=== PATIENT | male | born 1995 | race Caucasian/White ===

== ENCOUNTER 2016-10-11 16:45 | Emergency (ER) | payer BC ==
[2016-10-11] MEDS ORDERED: Acetaminophen-Codeine 300-30mg TAB PO STA (17:55)
[2016-10-11] MEDS ORDERED: IBUPROFEN 800 MG TAB PO STA (17:55)
[2016-10-11] MEDS ORDERED: ACETAMINOPHEN TAB 325 MG TAB PO STA (17:55)
--- NOTE | 2016-10-11 18:20 | ED ---
General Adult HPI - General Chief complaint: Fever Stated complaint: Fever/Poss Pneumonia Time Seen by Provider: 10/11/16 17:36 Source: patient, RN notes reviewed, old records reviewed Mode of arrival: ambulatory Limitations: no limitations - History of Present Illness Initial comments: This is a 20-year-old male ER for evaluation of fever. Patient is here cough and congestion going on for 2 days. Fevers 3 days. Patient was seen by similar Dr. diagnosed with pneumonia, patient is had increasing elevations fever. Patient has medical history is significant for occasional headaches and high blood pressure. Continue medications as prescribed. Patient denies bowel pain nausea vomiting, no chest pain, no headache at this time. Patient states appetite has been well - Related Data Home Medications Medication Instructions Recorded Confirmed Azithromycin [Zithromax Z-pack] See Taper PO DIRECTED 10/11/16 10/11/16 Ibuprofen [Motrin] 200 - 400 mg PO Q6HR PRN 10/11/16 10/11/16 LORazepam [Ativan] 1 mg PO DAILY PRN 10/11/16 10/11/16 Metoprolol Tartrate [Lopressor] 25 mg PO HS 10/11/16 10/11/16 Pantoprazole [Protonix] 40 mg PO DAILY 10/11/16 10/11/16 guaiFENesin [Mucinex] 600 mg PO Q12H PRN 10/11/16 10/11/16 Allergies Allergy/AdvReac Type Severity Reaction Status Date / Time Penicillins Allergy Unknown Verified 10/11/16 17:47 Review of Systems ROS Statement: Those systems with pertinent positive or pertinent negative responses have been documented in the HPI. ROS Other: All systems not noted in ROS Statement are negative. Past Medical History Past Medical History: GERD/Reflux, Hypertension History of Any Multi-Drug Resistant Organisms: None Reported Past Surgical History: Adenoidectomy, Tonsillectomy Past Psychological History: No Psychological Hx Reported Smoking Status: Never smoker Past Alcohol Use History: None Reported Past Drug Use History: None Reported General Exam Limitations: no limitations General appearance: alert, in no apparent distress Head exam: Present: atraumatic, normocephalic, normal inspection Eye exam: Present: normal appearance, PERRL, EOMI. Absent: scleral icterus, conjunctival injection, periorbital swelling ENT exam: Present: normal exam, mucous membranes moist Neck exam: Present: normal inspection. Absent: tenderness, meningismus, lymphadenopathy Respiratory exam: Present: normal lung sounds bilaterally. Absent: respiratory distress, wheezes, rales, rhonchi, stridor Cardiovascular Exam: Present: regular rate, normal rhythm, normal heart sounds. Absent: systolic murmur, diastolic murmur, rubs, gallop, clicks GI/Abdominal exam: Present: soft, normal bowel sounds. Absent: distended, tenderness, guarding, rebound, rigid Extremities exam: Present: normal inspection, full ROM, normal capillary refill. Absent: tenderness, pedal edema, joint swelling, calf tenderness Back exam: Present: normal inspection Neurological exam: Present: alert, oriented X3, CN II-XII intact Psychiatric exam: Present: normal affect, normal mood Skin exam: Present: warm, dry, intact, normal color. Absent: rash Course Vital Signs 10/11/16 10/11/16 17:00 17:45 Temperature 101.8 F H Pulse Rate 113 H 104 H Pulse Rate [ 108 H Apical] Respiratory 20 18 Rate Blood Pressure 120/59 O2 Sat by Pulse 99 96 Oximetry Medical Decision Making - Medical Decision Making uRthie calderon with evaluation of fever, patient does have positive influenza. Patient will be discharged home with fever control - Lab Data Lab Results 10/11/16 Range/Units 18:04 Influenza Type A RNA Not Detected (Not Detectd) Influenza Type B (PCR) Detected H (Not Detectd) - Radiology Data Radiology results: report reviewed (Chest x-ray is negative for pneumonia), image reviewed Disposition Clinical Impression: Influenza B Disposition: HOME SELF-CARE Condition: Good Instructions: Fever in Adults (ED), Influenza (ED) Referrals: Jeanmarie Jimenez DO [Primary Care Provider] - 1-2 days
--- NOTE | 2016-10-11 18:23 | XR ---
EXAMINATION TYPE: XR chest 2V DATE OF EXAM: 10/11/2016 6:13 PM COMPARISON: NONE HISTORY: Cough TECHNIQUE: Frontal and lateral views of the chest are obtained. FINDINGS: There is no focal air space opacity, pleural effusion, or pneumothorax seen. The cardiac silhouette size is within normal limits. The osseous structures are intact. IMPRESSION: No acute cardiopulmonary process.
[2016-10-11] MEDS ORDERED: DEXAMETHASONE SOD PHOSPHATE 10 MG/ML 1 ML VIAL IM STA (18:29)
[2016-10-11 18:52] VITALS: BP 98/65; PULSE 100; RESP 16; TEMP 99.3
== END 2016-10-11 19:00 | disposition home or self-care (01) ==
LOC: EC 16:45
DX: J10.1 Influenza due to other identified influenza virus with other respiratory manifestations (principal); K21.9 Gastro-esophageal reflux disease without esophagitis; I10 Essential (primary) hypertension; Z79.899 Other long term (current) drug therapy; Z88.0 Allergy status to penicillin
CPT/HCPCS: 87502; 71020; 99284; 96372; J1100

== ENCOUNTER → 2018-05-13 | Outpatient (CLI) | payer BC ==
--- NOTE | 2018-05-13 13:35 | EST ---
EXERCISE STRESS DATE OF SERVICE: 05/13/2018 AGE: 22 SEX: Male HT: 72 WT: 220 PROTOCOL: TXT STAGE: III DURATION OF EXERCISE: 8 minutes HEART RATE REST: 76 BLOOD PRESSURE REST: 121/85 MAXIMUM HEART RATE ACHIEVED: 175 MAXIMUM BLOOD PRESSURE: 158/76 85% MPHR: 168 100% MPHR: 198 METS: 9.7 INDICATIONS: Chest pain. CLINICAL INFORMATION: Baseline rhythm is sinus mechanism, rate 76, normal axis, intervals, normal electrocardiogram. Baseline blood pressure 121/85 mmHg. Patient exercised on Sergo protocol for 8 minutes reaching peak rate 175 beats per minute which is equal to 88% maximum predicted heart rate. Peak blood pressure 158/76 mmHg. Test was terminated secondary to fatigue. There was no chest pain. Electrocardiograph monitoring revealed rare PVCs. There was no evidence of diagnostic ischemic ST deviation. FINDINGS: 1. Average exercise tolerance with rare PVCs. 2. Normal electrocardiograph response to exercise with no evidence of exercise induced ischemia. MMODL / IJN: [id number] /
== END | disposition home or self-care (01) ==
LOC: RADNMMAIN 08:53
PROVIDERS: ATTEND Family Medicine
DX: I49.3 Ventricular premature depolarization (principal); R07.89 Other chest pain
CPT/HCPCS: 93017

== ENCOUNTER → 2018-05-20 | Outpatient (CLI) | payer BC ==
--- NOTE | 2018-05-21 10:48 | ECHOF ---
Referral Reason:R07.89 chest pain MEASUREMENTS -------- HEIGHT: 182.9 cm WEIGHT: 99.8 kg BP: 139/78 RVIDd: 2.8 cm (< 3.3) IVSd: 0.9 cm (0.6 - 1.1) LVIDd: 4.7 cm (3.9 - 5.3) LVPWd: 1.0 cm (0.6 - 1.1) IVSs: 1.4 cm LVIDs: 3.4 cm LVPWs: 1.6 cm LA Diam: 3.3 cm (2.7 - 3.8) LAESV Index (A-L): 21.80 ml/m Ao Diam: 3.0 cm (2.0 - 3.7) AV Cusp: 2.6 cm (1.5 - 2.6) MV EXCURSION: 23.124 mm (> 18.000) MV EF SLOPE: 143 mm/s (70 - 150) EPSS: 0.4 cm MV E Galen: 0.84 m/s MV DecT: 205 ms MV A Galen: 0.74 m/s MV E/A Ratio: 1.14 FINDINGS -------- Sinus rhythm. This was a technically good study. The left ventricular size is normal. Left ventricular wall thickness is normal. Overall left vent ricular systolic function is normal with, an EF between 60 - 65 %. The right ventricle is normal in size. Normal LA size by volume 22+/-6 ml/m2. The right atrium is normal in size. The aortic valve is trileaflet and appears structurally normal. There is trace to mild mitral regurgitation. The tricuspid valve appears structurally normal. Trace/mild (physiologic) pulmonic regurgitation. The aortic root size is normal. Normal inferior vena cava with normal inspiratory collapse consistent with estimated right atrial pre ssure of 5 mmHg. The inferior vena cava is mildly dilated. There is no pericardial effusion. CONCLUSIONS -------- 1. Sinus rhythm. 2. This was a technically good study. 3. The left ventricular size is normal. 4. Left ventricular wall thickness is normal. 5. Overall left ventricular systolic function is normal with, an EF between 60 - 65 %. 6. The right ventricle is normal in size. 7. Normal LA size by volume 22+/-6 ml/m2. 8. The right atrium is normal in size. 9. The aortic valve is trileaflet and appears structurally normal. 10. There is trace to mild mitral regurgitation. 11. The tricuspid valve appears structurally normal. 12. Trace/mild (physiologic) pulmonic regurgitation. 13. The aortic root size is normal. 14. Normal inferior vena cava with normal inspiratory collapse consistent with estimated right atrial pressure of 5 mmHg. 15. The inferior vena cava is mildly dilated. 16. There is no pericardial effusion. FLIGHT SURGEON: Mandie Reyes RDCS
== END ==
LOC: RADECHMAIN 15:46
PROVIDERS: ATTEND Family Medicine
DX: I34.0 Nonrheumatic mitral (valve) insufficiency (principal); I37.1 Nonrheumatic pulmonary valve insufficiency
CPT/HCPCS: 93306

== ENCOUNTER → 2022-07-28 | Outpatient (CLI) | payer BC ==
--- NOTE | 2022-07-28 11:02 | XR ---
EXAMINATION TYPE: XR knee complete bilateral DATE OF EXAM: 07/28/2022 10:33 AM INDICATION: Patient age:Male; 26 years old; Reason for study: [id number], [id number], [id number], [id number]; COMPARISON: None. TECHNIQUE: The bilateral knees knee(s) were examined in Frontal, lateral and oblique projections. FINDINGS: No evidence of any acute osseous pathology, joint space narrowing, soft tissue swelling, or joint effusion is noted. IMPRESSION: 1. No acute osseous pathology.
--- NOTE | 2022-07-28 11:02 | XR ---
EXAMINATION TYPE: XR Hip Bilateral Complete DATE OF EXAM: 07/28/2022 10:33 AM INDICATION: Patient age:Male; 26 years old; Reason for study: [id number], [id number], [id number], [id number]; COMPARISON: None. TECHNIQUE: The bilateral hips were examined in the frontal and lateral projections FINDINGS: No evidence for acute process, joint dislocation or significant soft tissue swelling. IMPRESSION: 1. No acute process. 2. No significant degeneration changes.
== END | disposition home or self-care (01) ==
LOC: RADXRMAIN 09:56
PROVIDERS: ATTEND Family Medicine
DX: M25.561 Pain in right knee (principal); M25.562 Pain in left knee; M25.551 Pain in right hip; M25.552 Pain in left hip
CPT/HCPCS: 73521